=== PATIENT | female | born 1945 | race Caucasian/White ===

== ENCOUNTER 2016-12-28 07:10 | Outpatient (CLI) | payer OTHER ==
[2016-12-28 07:57] LABS: eGFR (African) > 60; eGFR (Non-African) > 60
== END 2016-12-28 07:11 ==
LOC: LAB 07:10
PROVIDERS: ATTEND Family Medicine
DX: E11.9 Type 2 diabetes mellitus without complications (principal)
CPT/HCPCS: 80053; 80061; 82043; 83036

== ENCOUNTER 2018-09-04 15:42 | Outpatient (CLI) | payer OTHER ==
[2018-09-04 16:21] LABS: eGFR (Non-African) > 60
== END 2018-09-04 15:44 ==
LOC: LAB 15:42
PROVIDERS: ATTEND Family Medicine
DX: E11.9 Type 2 diabetes mellitus without complications (principal)
CPT/HCPCS: 36415; 80053; 80061; 82043; 83036

== ENCOUNTER 2018-10-09 22:17 | Emergency (ER) | payer OTHER ==
[2018-10-09] MEDS ORDERED: KETOROLAC TROMETHAMINE 60 MG/2 ML VIAL IM ONE (22:38)
[2018-10-09] MEDS ORDERED: ORPHENADRINE CITRATE 60 MG/2 ML ML IM ONE (22:38)
--- NOTE | 2018-10-09 22:58 | ED Physician Documentation ---
Upper Extremity Problem - HISTORIAN Historian: patient, other (family) - HPI Stated Complaint: L shoulder pain Chief Complaint: Upper Extremity Problem Location: L shoulder Onset: days ago (yesterday) Timing: still present, worse Where: home Severity: severe Exacerbated By: change in position Relieved By: nothing Quality: pain Further Comments: yes (73 year old female patient presents with complaint of left shoulder and neck pain. Patient state the pain started sometime yesterday, she used muscle rubs, ice and ibuprofen today - pain is worse tonight.) - ROS CONST: no problems EYES/ENT: none CVS/RESP: none GI/: none MS/SKIN/LYMPH: denies: calf pain, joint pain, rash, swollen glands, leg pain, other NEURO/PSYCH: denies: headache, fainting, dizziness, anxiety, depression, other - PAST HX Past History: diabetes Type 2, other (GERD) Other History: hyperlipidemia, hypertension Surgeries/Procedures: other (PPM/Defib) Allergies/Adverse Reactions: Allergies Allergy/AdvReac Type Severity Reaction Status Date / Time Penicillins Allergy Verified 10/09/18 22:58 Home Medications: Ambulatory Orders Medication Instructions Recorded Baclofen [Liorasal] 10 mg PO TID PRN #30 tablet 10/09/18 Ketorolac Tromethamine [Toradol] 10 mg PO TID #15 tablet 10/09/18 - SOCIAL HX Smoking History: non-smoker - FAMILY HX Family History: denies: none - VITAL SIGNS Vital Signs: Vital Signs Temp Pulse Resp BP Pulse Ox 98.2 F 98 H 18 156/82 95 10/10/18 00:15 10/10/18 00:15 10/10/18 00:15 10/10/18 00:15 10/09/18 22:17 - REVIEWED ASSESSMENTS Nursing Assessment Reviewed: Yes Vitals Reviewed: Yes ED Results Lab/Radiology - Orders Orders: ED Orders Category Date Time Status SHOULDER 2 VIEWS OR MORE [RAD] Stat Exams 10/09/18 Completed HYDROcodone /APAP 5/325 [[place] 5/325] Med 10/09/18 23:55 Discontinued 2 each PO NOW ONE Ketorolac Tromethamine [Toradol] Med 10/09/18 22:38 Discontinued 60 mg IM NOW ONE Orphenadrine Citrate [Norflex] Med 10/09/18 22:38 Discontinued 60 mg IM NOW ONE Upper Extremity Problem - EXAM General Appearance: moderate distress (in obvious pain) Skin: normal color, warm/dry, NR, INT, PAL, DR Shoulder Exam: normal inspection, no evidence of injury, limited ROM (related to pain), pain (with palpation and with ROM) Neuro/Tendon: normal sensation CVS: reg rate & rhythm, heart sounds normal, equal pulses, no murmur, no gallop, PMI nml, no JVD, no friction rub, 24 Vascular: no vascular compromise Peripheral: sensation nml, motor nml Central: oriented X3 Respiratory: no resp. distress, breath sounds nml Abdomen: non-tender, no organomegaly, nml bowel sounds, no distention Discharge Clincal Impression: Internal derangement of left shoulder Prescriptions: Baclofen [Liorasal] 10 mg PO TID PRN #30 tablet PRN Reason: Spasms Ketorolac Tromethamine [Toradol] 10 mg PO TID #15 tablet Referrals: Adeola Hanley MD [Primary Care Provider] - 2 Days Additional Instructions: Ice Rest Elevation You may use Tylenol every 4hour as needed for pain. Limit your dose to less than 4 G per day. Do not take ibuprofen, aleve, naproxen or any other NSAID while you are on toradol. (ketoralac) You may want to try massage, over the counter lidocaine patches, biofreeze, glenda blount or aspercream . If you are unable to bear weight and continuing to have significant pain on day 3-4; see your PCP for re-evaluation and additional xrays. Condition: Stable Disposition: 01 HOME, SELF-CARE Decision to Admit: NO Decision Time: 23:56
[2018-10-09] MEDS ORDERED: HYDROcodone /APAP 5/325 1 EACH TABLET PO ONE (23:55)
[2018-10-10 01:22] VITALS: BP 156/82
--- NOTE | 2018-10-10 05:21 | Diagnostic Imaging Report ---
ANGELES MORA ([employer]) - ER [facility] [id number] [id number] Report Submission Date: Oct 09, 2018 11:48:55 PM CDT Patient Study Name: LAURIE VERDUGO Date: Oct 09, 2018 10:57:59 PM CDT Modality Type: DX Gender: F Description: SHOULDER 2 VIEWS OR MORE : 41 Institution: [facility] Physician: AGNELES MORA) - ER Three views left shoulder Clinical history: Pain. Findings: Examination left shoulder in multiple views demonstrates mild narrowing of the acromioclavicular joint and osteophyte formation. The glenohumeral relationship is anatomic. There is no evident fracture. Impression: 1. 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 2. No fracture. Electronically signed on Oct 09, 2018 11:48:55 PM CDT by: Ti MENARD
== END 2018-10-10 00:20 | disposition home or self-care (01) ==
LOC: ED 22:17
DX: M24.812 Other specific joint derangements of left shoulder, not elsewhere classified (principal)
CPT/HCPCS: 73030; 96372; 99283; J1885; J2360; A9270-GY